=== PATIENT | male | born 1950 | race Caucasian/White ===

== ENCOUNTER 2020-07-26 11:31 | Emergency (ER) | payer OTHER, BC, MEDICARE ==
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
[2020-07-26] MEDS ORDERED: ACETAMINOPHEN 325 MG TABLET PO ONE (12:24)
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
== END 2020-07-26 15:01 | disposition home or self-care (01) ==
LOC: ER 11:31
DX: M25.579 Pain in unspecified ankle and joints of unspecified foot (principal); M54.5 Low back pain; M54.9 Dorsalgia, unspecified; M54.6 Pain in thoracic spine; V89.2XXA Person injured in unspecified motor-vehicle accident, traffic, initial encounter; I48.91 Unspecified atrial fibrillation; Z79.01 Long term (current) use of anticoagulants; Z98.890 Other specified postprocedural states
CPT/HCPCS: 72128; 72131; 99284